=== PATIENT | female | born 1970 | race Caucasian/White ===

== ENCOUNTER 2017-04-21 06:29 | Day surgery (SDC) | payer OTHER ==
[~2017-04-21] VITALS: Ht 162.6 cm; Wt 91.5 kg
[2017-04-21 07:15] VITALS: Ht 162.6 cm; Wt 91.5 kg
[2017-04-21 07:19] VITALS: BP 96/52; PULSE 65; RESP 18
[2017-04-21] MEDS ORDERED: OMEPRAZOLE PO (07:31)
--- NOTE | 2017-04-21 07:37 | OPPN ---
Date/Time of Note Date/Time of Note DATE: 04/21/17 TIME: 07:18 Operative Report Preoperative Diagnosis Abdominal pain Chronic heartburn Postoperative Diagnosis Gastroesophageal reflux disease Gastritis with erosions Operation/Procedure Performed Esophagogastroduodenoscopy and biopsy Surgeon see signature line insurance administrative assistant None Anesthesia: moderate sedation Estimated blood loss: none Transfusion Required none Specimen Gastric mucosal biopsy Grafts/Implants none Complications none LORI DANIELS MD Apr 21, 2017 07:35
[2017-04-21] MEDS ORDERED: FENTAnyl 50 MCG/ML VIAL ONE (07:45)
[2017-04-21] MEDS ORDERED: MIDAZOLAM 1 MG/ML 2 ML INJ ONE ×2 (07:45)
[2017-04-21 07:59] VITALS: BP 97/54; RESP 14
--- NOTE | 2017-04-21 09:16 | GILP ---
DATE OF PROCEDURE: 04/21/2017 PROCEDURE PERFORMED: Esophagogastroduodenoscopy and biopsy. SURGEON: Gypsy Vallejo MD PREOPERATIVE DIAGNOSES: 1. Abdominal pain. 2. Chronic heartburn. POSTOPERATIVE DIAGNOSES: 1. Gastroesophageal reflux disease. 2. Gastritis with erosions. 3. Gastric mucosal biopsies were taken for Helicobacter pylori test. INDICATION: Ms Vicki Kim is a 44-year-old female patient who had upper abdominal pain and chronic heartburn not responding to therapy. The patient was scheduled for endoscopic examination for further evaluation. The procedure and possible complications were well explained to the patient. The patient understood and consented to the procedure. DESCRIPTION OF PROCEDURE: Under influence of fentanyl and Versed, the gastroscope was carefully introduced into the esophagus. Under direct vision, it was advanced to the stomach, into the pylorus, into the duodenal bulb, and descending duodenum. FINDINGS: Esophagus: The patient had gastroesophageal reflux disease. Stomach: She had gastritis with erosions. Gastric mucosal biopsies were taken for H pylori test. Duodenum was normal. She tolerated the procedure very well. There were no complications from the procedure. At the end of procedure, she was awake with stable vital signs, and she was discharged home in the care of her family. IMPRESSION: Please see postoperative diagnoses. PLAN: 1. Continue omeprazole. 2. Add Zantac 300 mg p.o. q.h.s. 3. Await H pylori test report. Dictated By: MD EVY Mauro/francesca/[facility] /Document#: [id number]
--- NOTE | 2017-04-22 10:18 | CONS ---
DATE OF ADMISSION: 03/28/2017 DATE OF CONSULTATION: 03/31/2017 HISTORY OF PRESENT ILLNESS: I thank you very much for this kind referral. Ms. Vicki Perkins is a 46-year-old female patient who has been referred to me for further evaluation of upper abdominal pain and chronic heartburn not responding to therapy with omeprazole. The patient was noted to have H pylori infection and she has been treated with antibiotic without much relief of the symptoms. She is not taking any nonsteroidal anti-inflammatory agents. Her appetite has been good and there is no history of significant weight loss. PAST MEDICAL HISTORY: She status post cholecystectomy. No history of liver disease. She denies any change in the bowel habits. No history of inflammatory bowel disease. Not hypertensive or diabetic. No heart disease or lung problem or kidney disease. SOCIAL HISTORY: Nonsmoker. No alcohol abuse. FAMILY HISTORY: No family history of gastrointestinal tract neoplasm. ALLERGIES: SHE STATES SHE IS ALLERGIC TO: PENICILLIN. HYDROCODONE. BACTRIM. MEDICATION: Omeprazole. PHYSICAL EXAMINATION: VITAL SIGNS: She is 5 feet 5 inches tall, and she weighs 195 pounds. CARDIAC: Normal heart sounds. LUNGS: Clear. ABDOMEN: Soft. No masses. Normal bowel sounds. NEUROLOGIC: Normal neurological exam. IMPRESSION: 1. Upper abdominal pain and chronic heartburn not responding to therapy with omeprazole. 2. Status post Helicobacter pylori therapy without relief of the symptoms. 3. Status post cholecystectomy. 4. History of allergy to penicillin, hydrocodone and Bactrim. PLAN: Endoscopy for further evaluation. The procedure and possible complications were well explained to the patient. She understands and consents to the procedure. I thank you once again. With warmest personal regards, Patient Name: VICKI PERKINS Dictated By: MD EVY Mauro/francesca/[facility]ree /Document#: [id number]
== END 2017-04-21 09:21 | disposition home or self-care (01) ==
LOC: GIL 06:29
PROVIDERS: ATTEND Internal Medicine Gastroenterology
DX: K21.9 Gastro-esophageal reflux disease without esophagitis (principal); K29.60 Other gastritis without bleeding
CPT/HCPCS: 43239; 84703; 87081; J2250; J3010